=== PATIENT | male | born 1940 | race Hispanic/Latino ===

== ENCOUNTER 2017-04-19 14:34 | Day surgery (SDC) | payer OTHER, BC ==
[2017-04-17 09:41] VITALS: PULSE 124
[2017-04-19 16:11] VITALS: BMI 37.0
[2017-04-19] MEDS ORDERED: Lidocaine 2% Inj (20ml) ONE (16:34)
[2017-04-19] MEDS ORDERED: Phenylephrine 10 mg/ml Inj ONE (16:35)
[2017-04-19] MEDS ORDERED: Iohexol 350mgl/ml 50 ML ONE (16:35)
[2017-04-19] MEDS ORDERED: Iohexol 350 MG/100 ML VIAL ONE (16:35)
[2017-04-19] MEDS ORDERED: Nitroglycerin 50mg in D5W 0 MG/0 ML BOTTLE IV ONE (16:35)
[2017-04-19] MEDS ORDERED: Midazolam 2 MG/2 ML VIAL ONE (16:49)
--- NOTE | 2017-04-19 18:19 | CP.SDSHP ---
Same Day Surgery H & P - History Proposed Procedure: cardiac cath Pre-Op Diagnosis: NSTEMI - Previous Medical/Surgical History Cardiac: Hypertension, Arrhythmia Endocrine/Metabolic: Diabetes Neuro: Paresis Pain: 0. No Pain - Allergies Allergies: Allergies dabigatran etexilate [From Pradaxa] Allergy (Verified 04/15/17 05:07) hot flashes - Physical Exam Mental Status: Alert & Oriented x3 Neuro: WNL Heart: WNL Lungs: WNL GI: WNL - Impression Impression: NSTEMI Pt. Evaluated Today:Candidate for Anesthesia & Procedure: Yes - Date & Time Date: 04/19/17 Time: 17:00 Short Stay Discharge - Short Stay Discharge Admitting Diagnosis/Reason for Visit: CATH TRANSFER FROM [facility] Disposition: HOME/ ROUTINE Referrals: Edi Rhodes MD [Primary Care Provider] -
--- NOTE | 2017-04-19 18:20 | CP.PCM.PN ---
Subjective - Date & Time of Evaluation Date of Evaluation: 04/19/17 Time of Evaluation: 18:20 - Subjective Subjective: no angiographic evidence of CAD. xfer to [place]
[2017-04-19] MEDS ORDERED: Sodium Chloride 0.45% 1,000 ML IV SCH (18:30)
[2017-04-19 19:00] VITALS: TEMP 98.2
[2017-04-19 19:20] VITALS: BP 149/94; PULSE 93; RESP 20
--- NOTE | 2017-04-22 07:22 | CARD ---
APPROVED REPORT Procedure(s) performed: Left Heart Catheterization Left Ventriculogram Selective Right and Left Coronary Angiography HISTORY diabetes mellitus with treatment , tobacco history() : The patient is a former smoker , hypertension , dyslipidemia . INDICATION The indication(s) include : unstable angina , non-STEMI . CASE TECHNIQUE The patient was brought electively to the Cardiac Catheterization Laboratory in a fasting state and was prepped and draped in a sterile manner. The right femoral groin was infiltrated with 2% Lidocaine subcutaneous anesthesia. A 6 Fr x 11 cm Sienna sheath was inserted using coronary diagnostic catheters. The left coronary system was accessed and visualized with a 6 Fr JL 6 catheter. The right coronary system was accessed and visualized with a 6 Fr JR 4 catheter. The left ventricle was accessed and visualized with a 6 Fr Pigtail catheter. Left ventriculogram was performed in ZHU projection. Closure device was deployed with a 6 Fr Angio-Seal without any complications. The patient tolerated the procedure well and there were no complications associated with the procedure. Vessel Analysis The patient's coronary anatomy is right dominant. The left main coronary artery is a medium size vessel without stenosis. The left main bifurcates to the left anterior descending and circumflex. The left anterior descending artery is a medium size vessel with intimal irregularities and without significant stenosis. The circumflex artery is a medium size vessel with intimal irregularities and without significant stenosis. The right coronary artery is a medium size vessel with intimal irregularities and without significant stenosis. Left Ventricle The left ventricular ejection fraction is estimated to be 55%. There was no gradient across the aortic valve upon pullback. Conclusion No angiographic evidence of signifcant CAD. Normal LV function. Recommendations Aggressive Medical Therapy
== END 2017-04-19 20:15 | disposition short-term general hospital (02) ==
LOC: CATH 14:34 → 2RSO 18:31 → CATH 20:15
PROVIDERS: ATTEND Internal Medicine Cardiovascular Disease
DX: I21.4 Non-ST elevation (NSTEMI) myocardial infarction (principal); E11.9 Type 2 diabetes mellitus without complications; I10 Essential (primary) hypertension; E78.5 Hyperlipidemia, unspecified; I48.91 Unspecified atrial fibrillation; Z87.891 Personal history of nicotine dependence
CPT/HCPCS: 93458; 99152; C1760; C1769; C2629; J1644; J2250; J3010; J7040; Q9967